=== PATIENT | female | born 1960 | race Caucasian/White ===

== ENCOUNTER → 2017-09-10 | Outpatient (CLI) | payer MEDICARE ==
[~2017-09-10] MED LIST: ALP5 PO; AMO500 PO; CEP500 PO; KLONOPIN; LAMO200T46 PO; LAMO25TA64 PO; LOR5/325 PO; LOR75 PO; LORA-773 PO; MULT-1335 PO; NAP500; NICO-219 BC; PAR20 PO; PARO25TA16 PO; PEN250 PO; QUE100 PO; ROS10 PO; SIMV-49 PO; ZIPR60CA7 PO
--- NOTE | 2017-09-12 15:05 | RADIOLOGY IMAGING REPORT ---
FACILITY: [facility] - [place] PATIENT NAME: BRENDA HILL : [id number] MR: [id number] V: [id number] EXAM DATE: [id number] ORDERING PHYSICIAN: LANDON MCNALLY TECHNOLOGIST: Renee Trevizo PROCEDURE:BILATERAL DIGITAL SCREENING MAMMOGRAM WITH CAD ASSISTED INTERPRETATION & 3D TOMOSYNTHESIS COMPARISON:Prior mammograms 05/30/12, 05/21/11. INDICATIONS:SCREENING FINDINGS: Moderately heterogeneous fibroglandular tissue is seen throughout the breasts. The parenchymal pattern has remained stable allowing for difference in mammographic technique & patient positioning. There is no evidence of malignant appearing mass, malignant appearing calcifications or other secondary sign of malignancy in either breast. DIAGNOSTIC CATEGORY 2--BENIGN FINDING. RECOMMENDATIONS: ROUTINE MAMMOGRAM AND CLINICAL EVALUATION. IMPRESSION: BIRADS 2: Benign finding No significant abnormality is seen. Dictated by: Na Bailey M.D. on 09/12/2017 at 13:18 Transcribed by: ASHANTI on 09/12/2017 at 13:42 Approved by: Na Bailey M.D. on 09/12/2017 at 15:04 [facility]
== END ==
LOC: MAMO 02:25
PROVIDERS: ATTEND Family Medicine
DX: Z12.31 Encounter for screening mammogram for malignant neoplasm of breast (principal)
CPT/HCPCS: 77063; 77067

== ENCOUNTER → 2018-09-11 | Outpatient (CLI) | payer MEDICARE ==
--- NOTE | 2018-09-12 11:15 | RADIOLOGY IMAGING REPORT ---
FAC[place] [facility] [place] PATIENT NAME: BRENDA HILL : [id number] MR: [id number] V: [id number] EXAM DATE: [id number] ORDERING PHYSICIAN: LANDON MCNALLY TECHNOLOGIST: Jeana Ardon PROCEDURE:BILATERAL DIGITAL SCREENING MAMMOGRAM WITH CAD ASSISTED INTERPRETATION & 3D TOMOSYNTHESIS COMPARISON:Prior mammograms 09/10/17, 05/30/2012. INDICATIONS:SCREENING FINDINGS: The breasts have scattered fibroglandular parenchymal densities. Benign appearing masses in both breasts without significant interval change, the largest in the upper outer aspect of the Right breast. There are no mammographic findings concerning for malignancy. DIAGNOSTIC CATEGORY 2--BENIGN FINDING. RECOMMENDATIONS: ROUTINE MAMMOGRAM AND CLINICAL EVALUATION IN 1 YR. IMPRESSION: BIRADS 2: Benign finding. Dictated by: Bladimir Lott on 09/12/2018 at 9:24 Transcribed by: ASHANTI on 09/12/2018 at 11:00 Approved by: Bladimir Lott on 09/12/2018 at 11:15 [facility]
== END ==
LOC: MAMO 00:55
PROVIDERS: ATTEND Family Medicine
DX: Z12.31 Encounter for screening mammogram for malignant neoplasm of breast (principal)
CPT/HCPCS: 77063; 77067